=== PATIENT | male | born 1935 | race Caucasian/White ===

== ENCOUNTER 2019-05-07 08:50 | Emergency (ER) | payer MEDICARE, OTHER ==
[~2019-05-07 08:50] MED LIST: ALEN70TA74 PO; ATOR1TAB19 PO; AUGM875T28 PO; CALCIUM + VITAMIN D PO; COLA100C5 PO; HYDROCHLOROTHIAZIDE; HYDROCHLOROTHIAZIDE PO; IBUP-1022 PO; KEFL500C17 PO; LISINOPRIL; LISINOPRIL PO; LOVA20TA2 PO; MAPA500T17 PO; MULTTAB4 PO; OMEP40CA2 PO; PERC5TAB12 PO; PERCOCET PO; PRIM50TA6 PO; PROT1TAB2 PO; TYLE325T5 PO; VITA500T17 PO; [UNRECOGNIZED DRUG - REMARK]
[2019-05-07] MEDS ORDERED: ROSU40TA4 PO (09:06)
[2019-05-07] MEDS ORDERED: ONDANSETRON 4MG/2ML VIAL (J2405) IV ONE (09:15)
[2019-05-07] MEDS ORDERED: NS 1,000 ML IV SCH (09:15)
[2019-05-07 09:39] LABS: BASO % 0.1 % (0.0-1.0); EOS # 0.1 10^3/uL (0.0-0.5); EOS % 0.4 % (0.0-3.0); HEMATOCRIT 49.3 % (42.0-52.0); HEMOGLOBIN 16.2 g/dl (13.5-17.5); LYMPH # 0.5 10^3/uL (1.5-5.0); LYMPH % 3.5 % (24.0-44.0); MEAN CORPUSCULAR HEMOGLOBIN 29.6 pg (27.0-33.0); MEAN CORPUSCULAR HGB CONC 32.9 g/dl (32.0-36.5); MEAN CORPUSCULAR VOLUME 90.1 fl (80.0-96.0); MONO # 0.9 10^3/uL (0.0-0.8); MONO % 5.9 % (0.0-5.0); NEUTROPHILS # 13.3 10^3/uL (1.5-8.5); NEUTROPHILS % 89.6 % (36.0-66.0); PLATELET COUNT, AUTOMATED 205 10^3/uL (150-450); RED BLOOD COUNT 5.47 10^6/uL (4.30-6.10); WHITE BLOOD COUNT 14.8 10^3/uL (4.0-10.0)
[2019-05-07 10:06] LABS: BILIRUBIN,DIRECT 0.3 MG/DL (0.0-0.2); TOTAL PROTEIN 7.8 GM/DL (6.4-8.2)
--- NOTE | 2019-05-07 10:12 | REP ---
ACUTE ABDOMINAL SERIES: Three views. HISTORY: Abdominal pain. Comparison radiographs November 14, 2011. FINDINGS: Upright chest radiograph shows slightly elevated right hemidiaphragm which is unchanged. There is mild plate-like atelectasis in the right base. Lung paz are otherwise clear. No free subdiaphragmatic air is seen. No infiltrate is noted. Heart size is borderline. The thoracic aorta is tortuous. Supine and erect views of the abdomen show no evidence of free air. There is very little gas within the abdomen. No significant air fluid level or definitely dilated bowel loops are seen. There is evidence of an old healed or healing bilateral sacral insufficiency fracture pattern. Psoas margins and flank stripes are intact. There are degenerative disc changes at L4-5. There is a calcific opacity overlying the right kidney 2-3 mm in size which may be an intrarenal calculus. IMPRESSION: Essentially gasless abdomen. Discoid atelectasis right lung base. Question small intrarenal calculus right kidney. Electronically Signed by Paramjit Cui MD 05/07/2019 12:07 P
--- NOTE | 2019-05-07 11:30 | REP ---
CT ABDOMEN AND PELVIS WITHOUT CONTRAST: CT abdomen and pelvis performed without oral or IV contrast. Sagittal and coronal reconstruction images are performed. Comparison is made with prior study of 12/26/2013. There are fibrotic changes and calcified granulomas in the visualized lung bases. Liver, gallbladder, spleen, adrenals, pancreas and kidneys are grossly unremarkable. There is no hydronephrosis. There is mild atherosclerotic calcification of the abdominal aorta without aneurysm. No adenopathy is seen. There is no free air or free fluid. No bowel wall thickening is seen. The patient has had a prior appendectomy. In the right lower quadrant there is an oval structure with a partially calcified rim measuring about 3.7 cm in maximum diameter. This probably represents an old post surgical hematoma or seroma. There is mild sigmoid diverticulosis without acute diverticulitis. Urinary bladder is mildly distended and grossly unremarkable. There are degenerative changes of the spine. There is a small hiatal hernia. IMPRESSION: Small hiatal hernia. No acute bowel inflammation, free fluid or free air. There appears to be an old hematoma or seroma in the right lower quadrant with partially calcified rim status post appendectomy. This measures 3.7 cm in maximum diameter. Electronically Signed by Myron Mcintyre MD 05/07/2019 05:40 P
[2019-05-07 15:00] VITALS: BP 115/65
--- NOTE | 2019-05-08 18:36 | ECGEPIP ---
[facility] - ED Test Date: 2019-05-07 Pat Name: SHAY MENDEZ Department: Room: - Gender: Male Process Consultant: lauro : 1935 Requested By: Christina Hart Order Number: [id number] Reading MD: Christina Hart Measurements Intervals [place] Rate: 103 P: 12 DC: 199 QRS: -42 QRSD: 91 T: 51 QT: 337 QTc: 442 Interpretive Statements SINUS TACHYCARDIA MARKED LEFT AXIS DEVIATION SEPTAL MYOCARDIAL INFARCTION, PROBABLY OLD NO PRIOR Electronically Signed on 05-08-2019 18:35:39 EDT by Christina Hart
== END 2019-05-07 15:28 | disposition home or self-care (01) ==
LOC: M ED 08:50 → EDBD 08:50 → M ED 15:28
DX: A08.11 Acute gastroenteropathy due to Norwalk agent (principal); R11.2 Nausea with vomiting, unspecified; R19.7 Diarrhea, unspecified; R00.0 Tachycardia, unspecified; I10 Essential (primary) hypertension; E78.5 Hyperlipidemia, unspecified; K21.9 Gastro-esophageal reflux disease without esophagitis; Z87.442 Personal history of urinary calculi; Z79.899 Other long term (current) drug therapy
CPT/HCPCS: 36415; 74021; 74176; 80047; 80076; 83605; 83690; 85025; 87040; 87507; 93005; 93041; 96361; 96374; 99285; J2405

== ENCOUNTER 2022-09-10 16:55 | Emergency (ER) | payer OTHER ==
[~2022-09-10] VITALS: Ht 175.3 cm; Wt 80.6 kg
[~2022-09-10 16:55] MED LIST changes: -ALEN70TA74 PO; +ALEN70TA82 PO; +ROSU40TA4 PO
[2022-09-10 19:06] LABS: BASO % 0.4 % (0.0-1.0); EOS # 0.2 10^3/uL (0.0-0.5); EOS % 2.2 % (0.0-3.0); HEMATOCRIT 43.8 % (42.0-52.0); HEMOGLOBIN 14.5 g/dl (13.5-17.5); LYMPH # 1.8 10^3/uL (1.5-5.0); LYMPH % 25.2 % (24.0-44.0); MEAN CORPUSCULAR HEMOGLOBIN 29.6 pg (27.0-33.0); MEAN CORPUSCULAR HGB CONC 33.1 g/dl (32.0-36.5); MEAN CORPUSCULAR VOLUME 89.4 fl (80.0-96.0); MONO # 0.7 10^3/uL (0.0-0.8); MONO % 9.5 % (2.0-8.0); NEUTROPHILS # 4.5 10^3/uL (1.5-8.5); NEUTROPHILS % 62.4 % (36.0-66.0); PLATELET COUNT, AUTOMATED 168 10^3/uL (150-450); WHITE BLOOD COUNT 7.1 10^3/uL (4.0-10.0)
[2022-09-10 19:09] LABS: BLOOD UREA NITROGEN 12 MG/DL (9-23); CALCIUM LEVEL 9.4 MG/DL (8.3-10.6); CARBON DIOXIDE LEVEL 29 MMOL/L (20-31); CHLORIDE LEVEL 104 MMOL/L (98-107); CK-MB VALUE MASS < 1.0 NG/ML (<3.6); CPK CREATINE PHOSPHOKINASE 76 U/L (46-171); CREATININE FOR GFR 0.81 MG/DL (0.70-1.30); GLOMERULAR FILTRATION RATE > 60.0 (>35); GLUCOSE, FASTING 92 MG/DL (74-106); MB/CK RELATIVE INDEX 1.31 (< OR =4); POTASSIUM SERUM 4.8 MMOL/L (3.5-5.1); SODIUM LEVEL 138 MMOL/L (136-145)
[2022-09-10 19:47] VITALS: TEMP 97.6
[2022-09-10 20:52] LABS: CK-MB VALUE MASS < 1.0 NG/ML (<3.6)
[2022-09-10 20:57] LABS: CPK CREATINE PHOSPHOKINASE 75 U/L (46-171); MB/CK RELATIVE INDEX 1.33 (< OR =4)
[2022-09-11] VITALS: BP 164/78
[2022-09-11 00:11] LABS: RSV AMPLIFICATION NEGATIVE (NEGATIVE)
[2022-09-11 01:00] VITALS: O2SAT 93
== END 2022-09-11 01:18 | disposition home or self-care (01) ==
LOC: M ED 16:55
DX: J06.9 Acute upper respiratory infection, unspecified (principal); R05.9 Cough, unspecified; S23.41XA Sprain of ribs, initial encounter; X58.XXXA Exposure to other specified factors, initial encounter; Y92.89 Other specified places as the place of occurrence of the external cause; Y93.89 Activity, other specified; Y99.8 Other external cause status; I10 Essential (primary) hypertension; E78.5 Hyperlipidemia, unspecified; K21.9 Gastro-esophageal reflux disease without esophagitis; Z87.442 Personal history of urinary calculi; Z79.899 Other long term (current) drug therapy

== ENCOUNTER → 2022-09-18 | Outpatient (CLI) | payer MEDICARE, OTHER ==
[2022-09-18 16:21] LABS: BASO % 0.5 % (0.0-1.0); EOS # 0.1 10^3/uL (0.0-0.5); EOS % 1.4 % (0.0-3.0); HEMATOCRIT 43.7 % (42.0-52.0); HEMOGLOBIN 14.4 g/dl (13.5-17.5); LYMPH # 1.5 10^3/uL (1.5-5.0); LYMPH % 23.2 % (24.0-44.0); MEAN CORPUSCULAR HEMOGLOBIN 29.5 pg (27.0-33.0); MEAN CORPUSCULAR VOLUME 89.5 fl (80.0-96.0); MONO # 0.5 10^3/uL (0.0-0.8); MONO % 7.2 % (2.0-8.0); NEUTROPHILS # 4.2 10^3/uL (1.5-8.5); NEUTROPHILS % 67.4 % (36.0-66.0); PLATELET COUNT, AUTOMATED 181 10^3/uL (150-450); RED BLOOD COUNT 4.88 10^6/uL (4.30-6.10); WHITE BLOOD COUNT 6.2 10^3/uL (4.0-10.0)
[2022-09-18 16:28] LABS: ALBUMIN 3.6 G/DL (3.2-5.2); ALKALINE PHOSPHATASE 95 U/L (46-116); ALT/SGPT 23 U/L (7.0-40); AST/SGOT 20 U/L (<34); BILIRUBIN,TOTAL 0.6 MG/DL (0.3-1.2); BLOOD UREA NITROGEN 13 MG/DL (9-23); CALCIUM LEVEL 9.3 MG/DL (8.3-10.6); CARBON DIOXIDE LEVEL 30 MMOL/L (20-31); CHLORIDE LEVEL 105 MMOL/L (98-107); CREATININE FOR GFR 0.82 MG/DL (0.70-1.30); GLOMERULAR FILTRATION RATE > 60.0 (>35); GLUCOSE, FASTING 107 MG/DL (74-106); POTASSIUM SERUM 4.3 MMOL/L (3.5-5.1); SODIUM LEVEL 142 MMOL/L (136-145); TOTAL PROTEIN 6.6 G/DL (5.7-8.2)
[2022-09-18 16:29] LABS: FOLATE 23.5 NG/ML (>5.4); RHEUMATOID FACTOR QUANT < 3.5 IU/ML (<14)
[2022-09-18 16:30] LABS: THYROID STIMULATING HORMONE 2.186 uIU/ML (0.55-4.78); VITAMIN B12 LEVEL 408 PG/ML (211-911)
[2022-09-18 16:47] LABS: HEMOGLOBIN A1c 5.9 % (4.0-6.0)
[2022-09-18 18:15] LABS: ERYTHROCYTE SEDIMENTATION RATE 15 mm/hr (0-20)
== END ==
LOC: M LAB 15:03
PROVIDERS: ATTEND Psychiatry & Neurology Neurology
DX: R25.1 Tremor, unspecified (principal); Z79.899 Other long term (current) drug therapy

== ENCOUNTER → 2022-10-04 | Outpatient (CLI) | payer MEDICARE, OTHER ==
[2022-10-04 14:00] LABS: BLOOD UREA NITROGEN 14 MG/DL (9-23); CREATININE FOR GFR 0.94 MG/DL (0.70-1.30); GLOMERULAR FILTRATION RATE > 60.0 (>35)
== END ==
LOC: M LAB 13:18
PROVIDERS: ATTEND Psychiatry & Neurology Neurology
DX: I10 Essential (primary) hypertension (principal)

== ENCOUNTER 2022-10-24 10:38 | Day surgery (SDC) | payer MEDICARE, OTHER ==
[~2022-10-24] VITALS: Ht 175.3 cm; Wt 77.6 kg
[~2022-10-24 10:38] MED LIST changes: +PHENYLEPHRINE 10% OPHTH SOL 5ML OS PRN
[2022-10-24] MEDS: CYCLOPENTOLATE 1% OPHTH SOLN 2ML BTL OS SCH (12:20)
[2022-10-24] MEDS: LIDOCAINE 3.5 % 1ML OPHTH TOPICAL GEL OU ONE (12:20)
[2022-10-24] MEDS: PHENYLEPHRINE 2.5% OPHTH SOL 2ML OS SCH (12:21)
[2022-10-24] MEDS: OFLOXACIN 0.3 % (OCUFLOX) OPTH SOL 5ML OS ONE (12:21)
[2022-10-24] MEDS: TROPICAMIDE 1% OPHTH SOLN 15ML OS SCH (12:21)
[2022-10-24] MEDS ORDERED: MIDAZOLAM INJ 2MG/2ML VIAL As Ordered ONE (12:42)
[2022-10-24] MEDS ORDERED: fentaNYL 100 MCG/2 ML INJECTION As Ordered ONE (12:42)
[2022-10-24] MEDS: CEFUROXIME 1MG/0.1ML INTRACAMERAL INJ As Ordered ONE (12:45)
[2022-10-24] MEDS: BSS IRRIG/VANCO(10MG)/TOBRA(5MG)/EPINEPH(1:1000-0.5CC)500ML BAG-ORONLY IR ONE (12:45)
[2022-10-24] MEDS: LIDOCAINE 1% SDV 5ML VIAL As Ordered ONE (12:45)
[2022-10-24 13:03] VITALS: BP 137/69; TEMP 96.4; O2SAT 96
== END 2022-10-24 13:20 | disposition home or self-care (01) ==
LOC: M SDC 10:38
PROVIDERS: ATTEND Ophthalmology
DX: H25.12 Age-related nuclear cataract, left eye (principal); E78.5 Hyperlipidemia, unspecified; K21.9 Gastro-esophageal reflux disease without esophagitis; Z85.038 Personal history of other malignant neoplasm of large intestine; M19.90 Unspecified osteoarthritis, unspecified site; M54.9 Dorsalgia, unspecified; R06.02 Shortness of breath; Z79.899 Other long term (current) drug therapy
CPT/HCPCS: 66984; J0697; J2250; J3010; V2632

== ENCOUNTER 2024-01-29 00:22 | Emergency (ER) | payer OTHER, MEDICARE ==
[~2024-01-29] VITALS: Ht 172.7 cm; Wt 81.1 kg
[~2024-01-29 00:22] MED LIST changes: -PHENYLEPHRINE 10% OPHTH SOL 5ML OS PRN; -ROSU40TA4 PO; +ROSU40TA81 PO
[2024-01-29 00:52] LABS: BASO % 0.4 % (0.0-1.0); EOS # 0.1 10^3/uL (0.0-0.5); EOS % 0.5 % (0.0-3.0); HEMATOCRIT 42.1 % (42.0-52.0); HEMOGLOBIN 14.3 g/dl (13.5-17.5); LYMPH # 1.2 10^3/uL (1.5-5.0); LYMPH % 10.6 % (24.0-44.0); MEAN CORPUSCULAR HEMOGLOBIN 29.9 pg (27.0-33.0); MEAN CORPUSCULAR VOLUME 87.9 fl (80.0-96.0); MONO # 0.6 10^3/uL (0.0-0.8); MONO % 5.7 % (2.0-8.0); NEUTROPHILS # 9.3 10^3/uL (1.5-8.5); NEUTROPHILS % 82.5 % (36.0-66.0); PLATELET COUNT, AUTOMATED 156 10^3/uL (150-450); RED BLOOD COUNT 4.79 10^6/uL (4.30-6.10); WHITE BLOOD COUNT 11.2 10^3/uL (4.0-10.0)
[2024-01-29 01:14] LABS: INR 1.1; PROTHROMBIN TIME 14.5 SECONDS (12.5-14.5)
[2024-01-29 01:18] LABS: ALBUMIN 3.1 G/DL (3.2-5.2); ALKALINE PHOSPHATASE 70 U/L (40-129); ALT/SGPT 33 U/L (7.0-40); AST/SGOT 47 U/L (<34); BILIRUBIN,DIRECT 0.3 MG/DL (<0.4); BILIRUBIN,TOTAL 0.9 MG/DL (0.3-1.2); BLOOD UREA NITROGEN 16 MG/DL (9-23); CALCIUM LEVEL 9.2 MG/DL (8.3-10.6); CARBON DIOXIDE LEVEL 26 MMOL/L (20-31); CHLORIDE LEVEL 106 MMOL/L (98-107); CK-MB VALUE MASS 1.3 NG/ML (<3.6); CPK CREATINE PHOSPHOKINASE 101 U/L (46-171); CREATININE FOR GFR 0.83 MG/DL (0.70-1.30); GLOMERULAR FILTRATION RATE > 60.0 (>35); GLUCOSE, FASTING 134 MG/DL (74-106); LIPASE 21 U/L (12-53); MB/CK RELATIVE INDEX 1.28 (< OR =4); POTASSIUM SERUM 5.2 MMOL/L (3.5-5.1); SODIUM LEVEL 140 MMOL/L (136-145); TOTAL PROTEIN 6.4 G/DL (5.7-8.2)
[2024-01-29] MEDS ORDERED: ISOVUE-370 76% 100ML VIAL As Ordered ONE (07:15)
[2024-01-29 07:16] LABS: BLOOD UREA NITROGEN 16 MG/DL (9-23); CALCIUM LEVEL 8.9 MG/DL (8.3-10.6); CARBON DIOXIDE LEVEL 28 MMOL/L (20-31); CHLORIDE LEVEL 106 MMOL/L (98-107); CK-MB VALUE MASS 1.2 NG/ML (<3.6); CREATININE FOR GFR 0.85 MG/DL (0.70-1.30); GLOMERULAR FILTRATION RATE > 60.0 (>35); GLUCOSE, FASTING 110 MG/DL (74-106); POTASSIUM SERUM 4.4 MMOL/L (3.5-5.1); SODIUM LEVEL 140 MMOL/L (136-145)
[2024-01-29 07:24] LABS: CPK CREATINE PHOSPHOKINASE 74 U/L (46-171); MB/CK RELATIVE INDEX 1.62 (< OR =4)
[2024-01-29] MEDS ORDERED: PEPC10TA6 PO (08:09)
[2024-01-29] MEDS ORDERED: MULT-40 PO (08:09)
[2024-01-29] MEDS ORDERED: HOME MED LIST COMPLETE! XX SCH (08:10)
[2024-01-29 10:58] VITALS: BP 113/77; TEMP 97.8; O2SAT 95
== END 2024-01-29 11:01 | disposition home or self-care (01) ==
LOC: EDBD 00:22 → M ED 00:22
DX: R07.9 Chest pain, unspecified (principal); A09 Infectious gastroenteritis and colitis, unspecified; R94.31 Abnormal electrocardiogram [ECG] [EKG]; I10 Essential (primary) hypertension; E78.5 Hyperlipidemia, unspecified; K21.9 Gastro-esophageal reflux disease without esophagitis; Z79.810 Long term (current) use of selective estrogen receptor modulators (SERMs); Z79.899 Other long term (current) drug therapy
CPT/HCPCS: 36415; 71045; 74177; 80048; 80076; 82550; 82553; 83690; 84484; 85025; 85610; 87486; 87581; 87633; 87798; 93005; 93041; 94760; 99285; Q9967